=== PATIENT | female | born 1985 | race Caucasian/White ===

== ENCOUNTER → 2019-08-07 16:13 | Outpatient (BNVA) | payer SELFPAY | PROVIDERS: Visit Provider Registered Nurse | DX: R00.2 Palpitations (principal); R07.89 Other chest pain; R07.9 Chest pain, unspecified | CPT/HCPCS: 80053; 80061; 84443; 85025 ==

== ENCOUNTER 2021-01-31 22:12 | Emergency (ER) | payer SELFPAY ==
[2021-01-31 22:21] VITALS: PULSE 74; RESP 20; TEMP 36.7; O2SAT 98; BMI 24.9
--- NOTE | 2021-01-31 22:28 | W.ED.WOUNDLC ---
HPI - Wound/Laceration General: Chief Complaint: Wound/Laceration Stated Complaint: Wants Tetanus Shot from wound not healing Time Seen by Provider: 01/31/21 22:28 History of Present Illness: HPI narrative: 36-year-old female comes in today with a puncture wound to the left wrist. Patient reports last week she noticed that it was getting red and swollen and was able to remove a foreign body from the wound. Patient cannot remember when her last tetanus shot was although she did believe it was within the last 3 years. Patient came in though because of her malaise and fatigue and some muscle cramps and headache with it. Patient appears well. Patient appears no acute distress. Review of Systems General: Reports: 10 or more systems reviewed and unremarkable except in HPI and below Skin/Breast: Reports: other (Puncture wound wrist) [facility] ED PFSH: Medical History Anxiety disorder Chronic urticaria Family History Other CHF (congestive heart failure) Diabetes Hypertension Stroke Social History Smoking and tobacco status: never smoked Second hand smoke exposure: No Physical Exam Const: COMMON NORMALS: no acute distress and patient oriented x3 GENERAL APPEARANCE: cooperative HENMT: COMMON NORMALS: normocephalic, TM's normal bilaterally and Normal external nose present HEAD & SCALP: normal to inspection and normocephalic NOSE: Normal external nose present TYMPANIC MEMBRANE: TM's normal bilaterally MOUTH: Normal oral and palatal mucosa present THROAT: posterior oropharynx normal Eye: GENERAL EYE: appearance normal, both eyes and all related structures Neck/C-Spine: COMMON NORMALS: full ROM Lymph: LYMPHATIC: no lymphadenopathy noted Chest: COMMONS NORMALS: normal inspection of the chest Resp: COMMON NORMALS: normal respiratory effort EFFORT & INSPECTION: Yes able to speak in complete sentences Cardio: COMMON NORMALS: regular rate and regular rhythm RATE: regular rate RHYTHM: regular rhythm GI: COMMON NORMALS: non-tender : COMMON NORMALS: Yes no CVA tenderness BLADDER/KIDNEY EXAM: Yes no CVA tenderness Back/Pelvis: COMMON NORMALS: no CVA tenderness and thoracic and lumbar spine normal to inspection Extremity: COMMON NORMALS: normal to inspection Neuro: COMMON NORMALS: patient oriented x3 and moves all extremities Psych: COMMON NORMALS: mental status grossly normal and cooperative Skin: COMMON NORMALS: no rashes or lesions noted NARRATIVE SKIN EXAM: Healing puncture wound to the left wrist GENERAL SKIN EXAM: no rashes or lesions noted Course Vital Signs: Vital signs: Vital Signs Temperature 98.1 F 01/31/21 22:21 Pulse Rate 74 01/31/21 22:21 Respiratory Rate 20 H 01/31/21 22:21 Pulse Oximetry 98 01/31/21 22:21 MDM - Wound/Laceration MDM Narrative: Medical decision making narrative: Patient comes in for a wound to the left wrist. On exam we have a healing wound noted to the left wrist. Lungs were clear to auscultation. Respirations were even. Skin was warm and dry and color was pink. Abdomen was soft. No signs of serious illness or injury was noted. Differential diagnosis includes puncture wound to the wrist, need for prophylaxis tetanus, worried well, anxiety. I recommended patient follow-up with primary care regarding her concerns for other ailments such as vitamin deficiency, viral syndromes or heavy metal poisoning. I do not think patient has any of these abnormalities but it may be necessary for them to do further labs. I tried to reassure patient that she looked well and that there was no concerns for serious illness at this time. Discharge Plan Discharge Patient Disposition: Home Clinical Impression: Puncture wound Fatigue Qualifiers: Fatigue type: unspecified Qualified Code(s): R53.83 - Other fatigue Condition: Stable Prescriptions: No Action metoprolol tartrate 25 mg tablet See Rx Instructions PO BID RF: 0 vitamin B complex [B Complex-Vitamin B12] Tablet 1 tab PO DAILY RF: 0 ascorbic acid (vitamin C) 1,000 mg tablet 1 g PO BID RF: 0 ferrous sulfate 325 mg (65 mg iron) tablet,delayed release (DR/EC) 325 mg PO DAILY RF: 0 doxycycline hyclate 100 mg tablet 100 mg PO BID 14 Days Qty: 28 RF: 0 Discharge Orders: Discharge ED (Routine); Ordered 01/31/21 Ordered By: Kenneth Balderrama Referrals: Carol Toussaint FNP [Primary Care Provider] - Discharge Diet: Usual diet Discharge Activity: Increase activity as tolerated Patient Instructions: Puncture Wound (ED), Opioid Safety Activity Restrictions/Additional Instructions: Your symptoms at this time are very nonspecific. You might have anything from a vitamin deficiency, viral syndrome, or even heavy metal poisoning. I would recommend you follow-up with primary care to have some basic labs test done such as a CBC and CMP. You may also want to have your thyroid checked along with evaluation for vitamin deficiency. A lead level may also be necessary. Follow-up with primary care to have this evaluation as they will be able to get the test results and continue with the treatment plan which in the ER we would be limited as we would not be able to get most of these test results back quickly. Coding Level of Care Code ED Bone Drier Operator for Matti Capone
[2021-01-31] MEDS: tetanus-dipt-pertussis 0.5 mL SDV IM (22:51)
== END 2021-01-31 22:54 | disposition home or self-care (01) ==
PROVIDERS: Emergency Provider Nurse Practitioner Family; PCP Registered Nurse
DX: S61.532A Puncture wound without foreign body of left wrist, initial encounter (principal); R53.83 Other fatigue; X58.XXXA Exposure to other specified factors, initial encounter
CPT/HCPCS: 90471; 90715; 99282

== ENCOUNTER → 2021-06-07 11:27 | Outpatient (BNVA) | payer SELFPAY | PROVIDERS: PCP Registered Nurse; Visit Provider Nurse Practitioner Family | DX: R53.83 Other fatigue (principal); E55.9 Vitamin D deficiency, unspecified; H10.9 Unspecified conjunctivitis; Z79.899 Other long term (current) drug therapy; Z13.6 Encounter for screening for cardiovascular disorders | CPT/HCPCS: 80053; 80061; 81003; 82306; 83036; 84439; 84443; 85025; 85651; 86140; 87086 ==

== ENCOUNTER → 2021-06-16 13:39 | Outpatient (BNVA) | payer SELFPAY | PROVIDERS: PCP Registered Nurse; Visit Provider Nurse Practitioner Family | DX: R31.9 Hematuria, unspecified (principal); D22.9 Melanocytic nevi, unspecified | CPT/HCPCS: 81003; 87086 ==

== ENCOUNTER → 2021-06-17 16:19 | Outpatient (BNVA) | payer SELFPAY | PROVIDERS: PCP Registered Nurse; Visit Provider Nurse Practitioner Family | DX: R31.9 Hematuria, unspecified (principal) | CPT/HCPCS: 88112 ==

== ENCOUNTER 2021-09-27 12:45 | Emergency (ER) | payer SELFPAY ==
[2021-09-27 13:04] VITALS: BP 164/73; PULSE 96; RESP 16; TEMP 37.2; O2SAT 98; BMI 19.6
--- NOTE | 2021-09-27 13:29 | ED_ITS ---
HPI - General Adult General: Chief complaint: General Medical Stated complaint: Animal Bite Time Seen by Provider: 09/27/21 13:04 History of Present Illness: Patient is a 36-year-old female comes to the ED with possible rabies exposure. Patient [place] property with a have a lot of door cats and dogs. Mother says her cats and dogs are not vaccinated for rabies. Several days ago patient had a bobcat that was acting on in their chicken coop. It was not being aggressive but showing some very odd behavior. She was able to capture bobcat and take to other end of property to get away from the house. She states the next day she found that bobcat in her yard and the cats and dogs had been playing with it. She talked with a vet about bobcat symptoms and he thought it could potentially have had rabies. Patient says that her cats and dogs that were playing with the bobcat were licking all over her face and biting on leg legs for the past couple days. her pets so far have been acting normal. She contacted [facility] and told them about case and they said she is at small risk for secondary exposure to rabies and recommended starting rabies vaccination series. Mother denies getting any bites from bobcat that could potentially have had rabies. Denies any other symptoms. She is concerned about her 3 daughters being exposed to it as well since they have been playing with their pet dogs and cats. Associated symptoms: Deny chest pain, dyspnea, headache(s), nausea, rash, palpitations or vomiting Review of Systems Const: Denies: fever(s), chills or fatigue Eyes: Denies: change in vision or eye discomfort ENMT: Denies: throat pain, odynophagia, nasal discharge or nasal congestion Card: Denies: chest pain, palpitations, edema, swelling of feet/ankles, dyspnea on exertion or orthopnea Resp: Denies: dyspnea, productive cough or non-productive cough GI: Denies: abdominal pain, nausea, vomiting, diarrhea, constipation or hematochezia : Denies: flank pain, dysuria or hematuria Musc: Denies: neck pain, back pain or extremity swelling Skin/Breast: Denies: rash or new lesions Neuro: Denies: headache(s), numbness in extremities or weakness in extremities PFS ED PFSH: Medical History Anxiety disorder Atypical mole Chronic urticaria Conjunctivitis Fatigue Hypertension screen Medication management Vitamin D deficiency Family History Other CHF (congestive heart failure) Diabetes Hypertension Stroke Social History Smoking and tobacco status: never smoked Second hand smoke exposure: No Physical Exam Const: COMMON NORMALS: no acute distress, patient oriented x3, healthy appearing and alert GENERAL APPEARANCE: cooperative and comfortable HENMT: COMMON NORMALS: normocephalic HEAD & SCALP: normocephalic MOUTH: Normal oral and palatal mucosa present THROAT: posterior oropharynx normal and uvula midline Neck/C-Spine: COMMON NORMALS: supple GENERAL: Yes normal visual inspection Resp: COMMON NORMALS: normal respiratory effort, No retractions, No use of accessory muscles and clear to auscultation bilaterally AUSCULTATION: clear to auscultation bilaterally Cardio: COMMON NORMALS: regular rate, regular rhythm, S1 normal heart sound present, S2 normal heart sound present, No gallops present (Cardio), No clicks present (Cardio), No murmurs present (Cardio) and Peripheral pulses 2+ throughout RATE: regular rate RHYTHM: regular rhythm HEART SOUNDS: S1 normal heart sound present and S2 normal heart sound present PERIPHERAL PULSES: Peripheral pulses 2+ throughout GI: COMMON NORMALS: Normal to inspection, nondistended, normoactive bowel sounds present, Soft to palpation, non-tender and no masses PALPATION: Yes Soft to palpation : COMMON NORMALS: Yes no CVA tenderness BLADDER/KIDNEY EXAM: Yes no CVA tenderness Back/Pelvis: COMMON NORMALS: no CVA tenderness Extremity: COMMON NORMALS: normal to inspection Neuro: COMMON NORMALS: patient oriented x3 and moves all extremities SENSORIUM/ORIENTATION: Yes alert Skin: GENERAL SKIN EXAM: dry skin Course Vital Signs: Vital signs: Vital Signs Temperature 99 F 09/27/21 13:04 Pulse Rate 96 09/27/21 13:04 Respiratory Rate 16 09/27/21 13:04 Blood Pressure 164/73 09/27/21 13:04 Pulse Oximetry 98 09/27/21 13:04 [facility] - General Adult Medical Decision Making Patient here for exposure to possible rabies. See HPI for more details. Patient denies any symptoms. Vitals are stable and patient appears healthy and exam is benign. Patient started on rabies postexposure prophylaxis protocol. They are instructed on when to come back for the rest of rabies postexposure vaccine series. Discharge Plan Discharge Patient Disposition: Home Clinical Impression: Need for post exposure prophylaxis for rabies Condition: Stable Prescriptions: No Action vitamin B complex [B Complex-Vitamin B12] Tablet 1 tab PO DAILY 0RF ascorbic acid (vitamin C) 1,000 mg tablet 1 g PO BID 0RF ferrous sulfate 325 mg (65 mg iron) tablet,delayed release (DR/EC) 325 mg PO DAILY 0RF Discharge Orders: Discharge ED (Routine); Ordered 09/27/21 Ordered By: Emil Arias Referrals: Carol Toussaint FNP [Primary Care Provider] - Discharge Diet: Regular Discharge Activity: Resume usual activity Activity Restrictions/Additional Instructions: Follow-up with medical provider as directed. return to the ED for rabies vaccination dose on day 3 (September 30), 7 (October 04) and 14 (October 11). take medications as prescribed. Return to the ER or your medical provider if condition worsens. Please read and understand discharge instructions. If any questions, please ask. Coding Level of Care Code ED Elect Equip Maint Eng for Matti Fwd Exam Comprehensive
[2021-09-27] MEDS: rabies vaccine 2.5 unit SDV IM (14:28)
== END 2021-09-27 14:34 | disposition home or self-care (01) ==
PROVIDERS: Emergency Provider Physician Assistant; PCP Registered Nurse
DX: Z20.3 Contact with and (suspected) exposure to rabies (principal); Z29.14 Encounter for prophylactic rabies immune globulin; Z23 Encounter for immunization
CPT/HCPCS: 90471; 90675; 99283

== ENCOUNTER 2021-09-30 12:20 | Emergency (ER) | payer SELFPAY ==
[2021-09-30 12:32] VITALS: BP 125/80; PULSE 84; RESP 16; TEMP 36.9; O2SAT 100; BMI 19.6
--- NOTE | 2021-09-30 13:18 | ED_ITS ---
HPI - General Adult General: Chief complaint: General Medical Stated complaint: rabies shots Time Seen by Provider: 09/30/21 12:28 Source: patient Mode of arrival: ambulatory Limitations: no limitations History of Present Illness: Patient is an 36-year-old female here along with her 3 children for day 3 of the rabies vaccination as part of their rabies postexposure prophylaxis. Mother states 3 days ago they all were exposed to one of their farm animals (dogs/cats) that had been attacking and eating on a bobcat that potentially had rabies. Patient has no physical symptoms or complaints at this time. All dogs/cats at the house have been acting normal thus far. Review of Systems General: Reports: 10 or more systems reviewed and unremarkable except in HPI and below PFSH ED PFSH: Medical History Anxiety disorder Atypical mole Chronic urticaria Conjunctivitis Fatigue Hypertension screen Medication management Vitamin D deficiency Family History Other CHF (congestive heart failure) Diabetes Hypertension Stroke Social History Smoking and tobacco status: never smoked Second hand smoke exposure: No Female Reproductive History: Date of last menstrual period: 09/30/21 Physical Exam Const: COMMON NORMALS: no acute distress, average body habitus, patient oriented x3, no limitations, healthy appearing, alert and well nourished Extremity: GENERAL: Yes normal exam except as noted Neuro: GLORIA COMA SCALE: document GCS findings Gloria coma scale eye opening: Spontaneous Gloria coma scale verbal response: Orientated Gloria coma scale motor response: Obey commands Gloria coma scale total score: 15 COMMON NORMALS: patient oriented x3, moves all extremities, no focal motor deficits, no sensory deficits noted and gait normal SENSORIUM/ORIENTATION: Yes alert Skin: COMMON NORMALS: no rashes or lesions noted GENERAL SKIN EXAM: no rashes or lesions noted Course Vital Signs: Vital signs: Vital Signs Temperature 98.4 F 09/30/21 12:32 Pulse Rate 84 09/30/21 12:32 Respiratory Rate 16 09/30/21 12:32 Blood Pressure 125/80 09/30/21 12:32 Pulse Oximetry 100 09/30/21 12:32 [facility] - General Adult Medical Decision Making Rabies vaccination was administered. Recommend patient continue on current schedule to receive rabies vaccinations on days 7 and 14. Discharge Plan Discharge Patient Disposition: Home Clinical Impression: Encounter for repeat administration of rabies vaccination Condition: Stable Prescriptions: No Action vitamin B complex [B Complex-Vitamin B12] Tablet 1 tab PO DAILY 0RF ascorbic acid (vitamin C) 1,000 mg tablet 1 g PO BID 0RF ferrous sulfate 325 mg (65 mg iron) tablet,delayed release (DR/EC) 325 mg PO DAILY 0RF sulfamethoxazole-trimethoprim [Bactrim DS] 800-160 mg tablet 1 tab PO Q12H 7 Days Qty: 14 0RF Discharge Orders: Discharge ED (Routine); Ordered 09/30/21 Ordered By: Karis Valencia Referrals: MAURICIO Olivarez, WELDING MACHINE OPERATOR ELECTRON BEAM [Primary Care Provider] - Coding Level of Care Code ED Cardiac Cath Lab Technologist for Matti Capone
[2021-09-30] MEDS: rabies vaccine 2.5 unit SDV IM (13:23)
== END 2021-09-30 13:49 | disposition home or self-care (01) ==
PROVIDERS: Emergency Provider Physician Assistant
DX: Z29.14 Encounter for prophylactic rabies immune globulin (principal); Z20.3 Contact with and (suspected) exposure to rabies; Z23 Encounter for immunization
CPT/HCPCS: 90471; 90675; 99283

== ENCOUNTER → 2023-01-24 13:40 | Outpatient (BNVA) | payer MEDICAID, SELFPAY | PROVIDERS: Visit Provider Nurse Practitioner Women's Health | DX: N64.4 Mastodynia (principal); R53.83 Other fatigue | CPT/HCPCS: 84146; 84702 ==

== ENCOUNTER 2023-02-01 11:09 | Outpatient (CLI) | payer MEDICAID, SELFPAY ==
--- NOTE | 2023-02-01 11:00 | MM_ITS ---
WS: [id number] DIAGNOSTIC BILATERAL DIGITAL BREAST TOMOSYNTHESIS MAMMOGRAPHY WITH CAD BILATERAL BREAST ULTRASOUND, COMPLETE HISTORY: N64.4 - Mastodynia COMPARISON: None available. TECHNIQUE: Bilateral craniocaudad, mediolateral oblique, and mediolateral views are submitted with to mosynthesis and SM. Spot compression LEFT CC. Computer aided detection utilized. Breast composition: The breasts are extremely dense, which lowers the sensitivity of mammography. No masses or distortion identified. No nipple retraction. Very dense fibroglandular tissue. No calcifica tion. Bilateral breast ultrasound, complete. Bilateral breast ultrasound is performed. No distortion or solid mass identified. Simple cyst RIGHT b reast at 4:00 2 cm from the nipple measures 6 x 6 x 3 mm. Additional slightly complex cyst at 8:00 LE FT breast near the areola. This is palpable. This cyst complex cyst measures 4 x 4 x 3 mm. There are no solid masses. IMPRESSION: MM/[place] [id number] BI-RADS: 2-Benign FOLLOW UP: 1 Year Follow-up
--- NOTE | 2023-02-01 11:14 | US_ITS ---
WS: [id number] DIAGNOSTIC BILATERAL DIGITAL BREAST TOMOSYNTHESIS MAMMOGRAPHY WITH CAD BILATERAL BREAST ULTRASOUND, COMPLETE HISTORY: N64.4 - Mastodynia COMPARISON: None available. TECHNIQUE: Bilateral craniocaudad, mediolateral oblique, and mediolateral views are submitted with to mosynthesis and SM. Spot compression LEFT CC. Computer aided detection utilized. Breast composition: The breasts are extremely dense, which lowers the sensitivity of mammography. No masses or distortion identified. No nipple retraction. Very dense fibroglandular tissue. No calcifica tion. Bilateral breast ultrasound, complete. Bilateral breast ultrasound is performed. No distortion or solid mass identified. Simple cyst RIGHT b reast at 4:00 2 cm from the nipple measures 6 x 6 x 3 mm. Additional slightly complex cyst at 8:00 LE FT breast near the areola. This is palpable. This cyst complex cyst measures 4 x 4 x 3 mm. There are no solid masses. IMPRESSION: US/[place] breast [place] complete [id number] BI-RADS: 2-Benign FOLLOW UP: 1 Year Follow-up
== END 2023-02-01 11:10 | disposition home or self-care (01) ==
LOC: RAD 11:09
PROVIDERS: Visit Provider Nurse Practitioner Women's Health
DX: N64.4 Mastodynia (principal)
CPT/HCPCS: 76641; 77062; G0279

== ENCOUNTER → 2023-07-28 08:29 | Outpatient (BNVA) | payer SELFPAY | PROVIDERS: PCP Nurse Practitioner Family; Visit Provider Nurse Practitioner Women's Health | DX: Z34.90 Encounter for supervision of normal pregnancy, unspecified, unspecified trimester (principal); Z30.9 Encounter for contraceptive management, unspecified | CPT/HCPCS: 81025; 84702; 86850; 86900 ==

== ENCOUNTER 2023-08-01 16:12 | Outpatient (CLI) | payer SELFPAY | END 2023-08-01 16:13 | disposition home or self-care (01) | LOC: LAB 16:14 | PROVIDERS: PCP Nurse Practitioner Family; Visit Provider Obstetrics & Gynecology | DX: O20.0 Threatened abortion (principal) | CPT/HCPCS: 36415; 84702 ==

== ENCOUNTER 2023-08-03 17:29 | Outpatient (CLI) | payer MEDICAID, SELFPAY | END 2023-08-03 17:30 | disposition home or self-care (01) | LOC: LAB 17:31 | PROVIDERS: PCP Nurse Practitioner Family; Visit Provider Obstetrics & Gynecology | DX: O20.0 Threatened abortion (principal) | CPT/HCPCS: 36415; 84702 ==

== ENCOUNTER 2023-08-04 17:21 | Emergency (ER) | payer SELFPAY ==
[2023-08-04 17:39] VITALS: BP 120/70; PULSE 71; RESP 17; TEMP 37; O2SAT 100; BMI 20.9
--- NOTE | 2023-08-04 17:42 | ED_ITS ---
HPI - 2 General: Chief complaint: Vaginal Bleeding Stated complaint: MISCARRIAGE Time Seen by Provider: 08/04/23 17:35 Source: patient Mode of arrival: EMS History of Present Illness: 38-year-old G4, P3 SAB 1 female presents with a reported twin gestation. She had previously had mono Di twins about 6 years ago. Recent serial beta-hCG showed on 426 beta-hCG of 152K on 430 beta-hCG of 123 K, on 5 05/04/2019 4K. I do not see documentation in the chart confirming intrauterine . Patient has reported intermittent heavy bleeding and near syncopal episode today. Not active bleeding at this time. MD Complaint: vaginal bleeding Onset (ago): day(s) Relieving factors: none Exacerbating factors: none Vaginal bleeding: clots care: followed by OB Associated symptoms: Deny abdominal pain, dyspareunia, dysuria, headache(s), malaise, nausea, rash, seizures, short of breath, syncope, vaginal bleeding, vaginal discharge, visual changes, vomiting or weakness Review of Systems 2 Const: Denies: malaise Card: Denies: syncope GI: Denies: abdominal pain, nausea or vomiting : Denies: dysuria, urinary frequency, urinary urgency, vaginal discharge or dyspareunia Neuro: Denies: headache(s) PFSH ED 2 PFSH: Medical History Parenchymal disease of kidney Atypical mole Hypertension screen Medication management Fatigue Conjunctivitis Vitamin D deficiency Anxiety disorder Chronic urticaria Family History Other Congestive heart failure (CHF) Diabetes Hypertension Stroke Social History Smoking and tobacco/nicotine status: never used tobacco/nicotine Second hand smoke exposure: No Substance/Drug Use: never Physical Exam 2 Const: GENERAL APPEARANCE: cooperative and comfortable O RIENTATION/CONSCIOUSNESS: Yes awake, Yes oriented to person, Yes oriented to place and Yes oriented to time HENMT: COMMON NORMALS: normocephalic, atraumatic and hearing grossly normal bilaterally HEAD & SCALP: normocephalic and atraumatic Resp: COMMON NORMALS: normal respiratory effort, No retractions, No use of accessory muscles and clear to auscultation bilaterally AUSCULTATION: clear to auscultation bilaterally Cardio: COMMON NORMALS: regular rate, regular rhythm and No murmurs present (Cardio) RATE: regular rate RHYTHM: regular rhythm GI: COMMON NORMALS: Soft to palpation and No hepatosplenomegaly present A USCULTATION: Yes normoactive bowel sounds PALPATION: Yes Soft to palpation, No Tenderness to palpation present (GI), No Guarding due to palpation present (GI) and Yes No hepatosplenomegaly present : SPECULUM EXAM - VAGINA: No vaginal bleeding OB/EXTERNAL & SPECULUM: No vaginal bleeding OTHER: Patient placed in dorsolithotomy position with nurse present. Large amount of blood in the vaginal vault this was removed with ring forceps and jorge swabs. Cervix visualized there is products of conception at the os which was removed to with a ring forceps. An intact bag sunshine with poles removed. This was submitted for pathology. Once the products of conception was removed from the os bleeding decreased. GC chlamydia and wet mount were also done. Extremity: COMMON NORMALS: normal to inspection, capillary refill normal, no clubbing, cyanosis or edema, no calf tenderness and no pedal edema Neuro: SENSORIUM/ORIENTATION: Yes oriented to person, Yes oriented to place and Yes oriented to time Skin: COMMON NORMALS: no rashes or lesions noted GENERAL SKIN EXAM: no rashes or lesions noted Course 2 Vital Signs: Vital signs: Vital Signs Temperature 98.6 F 08/04/23 17:39 Pulse Rate 77 08/04/23 18:04 Respiratory Rate 17 08/04/23 17:39 Blood Pressure 127/78 08/04/23 18:04 Pulse Oximetry 100 08/04/23 18:04 Oxygen Delivery Me thod Room Air 08/04/23 18:04 MDM - OB/Uterine Contractions Medical Decision Making Patient presents with increasing cramping and pain. On pelvic exam products of conception found in the os these were removed with a ring forceps without difficulty. No bleeding after this was removed. POC that was removed and submitted for pathology. Cultures done as well. Discharge patient home with hydrocodone promethazine to use as needed. She had related that there was an issue with her kidneys her kidney function today is normal. Encouraged her to follow-up with the evaluation as previously advised regarding that but reassuringly her kidney function today is good. Her hemoglobin is 11 8 which reflects a slight decrease but is still stable. Suspect her syncopal episode was due to the pain and cramping. RhoGAM was given patient be discharged home advised to follow-up with her OB next week. Medical Records I reviewed the patient's medical records. Lab Data I reviewed the patient's lab results. 08/04/23 16:18 08/04/23 16:18 Laboratory Results WBC 9.61 10^3/uL (3.29-11.43) 08/04/23 16:18 RBC 3.83 10^6/uL (3.85-5.65) L 08/04/23 16:18 Hgb 11.80 g/dL (11.27-16.99) 08/04/23 16:18 Hct 35.8 % (36-47) L 08/04/23 16:18 MCV 93.5 fl (85-98) 08/04/23 16:18 MCH 30.8 pg (27-33) 08/04/23 16:18 MCHC 33.0 g/dL (30-55) 08/04/23 16:18 RDW 12.2 % (12.1-15.1) 08/04/23 16:18 Plt Count 227 10^3/cmm (157-399) 08/04/23 16:18 MPV 10.1 fL (7.4-10.4) 08/04/23 16:18 Neut % (Auto) 67.0 % 08/04/23 16:18 Lymph % (Auto) 22.7 % 08/04/23 16:18 [place] % (Auto) 6.5 % 08/04/23 16:18 Eos % (Auto) 2.8 % 08/04/23 16:18 Baso % (Auto) 0.8 % 08/04/23 16:18 Neut # (Auto) 6.44 10^3/uL (1.8-7.7) 08/04/23 16:18 Lymph # (Auto) 2.2 10^3/uL (0.8-4.8) 08/04/23 16:18 [place] # (Auto) 0.6 10^3/uL (0.2-0.9) 08/04/23 16:18 Eos # (Auto) 0.3 10^3/uL (0.0-0.8) 08/04/23 16:18 Baso # (Auto) 0.1 10^3/uL (0.0-0.1) 08/04/23 16:18 Nucleated RBC % (auto) 0 % 08/04/23 16:18 Nucleated RBCs # 0.0 /100WBC 08/04/23 16:18 Sodium 139 mmol/L (136-145) 08/04/23 16:18 Potassium 3.9 mmol/L (3.5-5.1) 08/04/23 16:18 Chloride 106 mmol/L (98-107) 08/04/23 16:18 Carbon Dioxide 24 mmol/L (22-29) 08/04/23 16:18 Anion Gap 12.9 (5-19) 08/04/23 16:18 BUN 14 mg/dL (6-20) 08/04/23 16:18 Creatinine 0.7 mg/dL (0.5-0.9) 08/04/23 16:18 GFR Calculation 94.2 mL/min (90-130) 08/04/23 16:18 Glucose 99 mg/dL (65-115) 08/04/23 16:18 Calculated Osmolality 289 mOsm/kg (285-295) 08/04/23 16:18 Calcium 8.6 mg/dL (8.5-10.5) 08/04/23 16:18 Total Bilirubin 0.2 mg/dL (0.15-1.2) 08/04/23 16:18 AST 13 U/L (0-32) 08/04/23 16:18 ALT 11 U/L (0-33) 08/04/23 16:18 Alkaline Phosphatase 46 U/L (35-105) 08/04/23 16:18 Total Protein 6.8 g/dL (6.6-8.7) 08/04/23 16:18 Albumin 4.0 g/dL (3.5-5.2) 08/04/23 16:18 Globulin 2.8 g/dL (1.3-4.6) 08/04/23 16:18 Ser , Semi-Qnt 7248.00 mIU/mL 08/04/23 16:18 No radiology studies performed this visit Discharge Plan Discharge Patient Disposition: Home Clinical Impression: Complete miscarriage Condition: Stable Prescriptions: New hydrocodone-acetaminophen 5-325 mg tablet 1 tab PO Q6H PRN (Reason: pain) Qty: 15 0RF promethazine 25 mg tablet 25 mg PO Q6H PRN (Reason: nausea and vomiting) Qty: 20 0RF No Action Gummies 400 mcg-35 mg- 25 mg-5 mg tablet,chewable PO Discharge Orders: Discharge ED (Routine); Ordered 08/04/23 Ordered By: Dayron Adkins Referrals: MAURICIO Olivarez, COOK HELPER FRUIT [Primary Care Provider] - Discharge Diet: Usual diet Discharge Activity: Increase activity as tolerated Patient Instructions: Miscarriage (ED), Opioid Safety, Pain Management Activity Restrictions/Additional Instructions: Thank you for choosing [facility] for your healthcare needs today. Please realize this is an emergency room and that we are providing you with a medical screening exam and this may not be complete and all inclusive of all the testing and or work up that you may need to determine your ailment or severity of your illness. It is very important that you follow up as instructed or that you return to the Emergency Department should you have concerns or if your condition changes or worsens in any way. Follow-up with your database developer. Contact their office and inform them that your miscarriage completed. They should follow-up with you next week sometime. Coding Level of Care Code ED Telecommunications Support for Matti Capone
[2023-08-04 17:44] LABS: Basophils # 0.1 10^3/uL (0.0-0.1); Basophils % 0.8 %; Eosinophils # 0.3 10^3/uL (0.0-0.8); Eosinophils % 2.8 %; Hematocrit 35.8 % (36-47); Lymphocytes # 2.2 10^3/uL (0.8-4.8); Lymphocytes % 22.7 %; Mean Corpuscular Hemoglobin 30.8 pg (27-33); Mean Corpuscular Volume 93.5 fl (85-98); Mean Platelet Volume 10.1 fL (7.4-10.4); Monocytes # 0.6 10^3/uL (0.2-0.9); Monocytes % 6.5 %; Neutrophils # 6.44 10^3/uL (1.8-7.7); Nucleated Red Blood Cells % 0 %; Platelet Count 227 10^3/cmm (157-399); Red Blood Count 3.83 10^6/uL (3.85-5.65); Red Cell Distribution Width 12.2 % (12.1-15.1); White Blood Count 9.61 10^3/uL (3.29-11.43)
[2023-08-04 18:04] VITALS: BP 127/78; PULSE 77; O2SAT 100
[2023-08-04 18:12] LABS: Alanine Aminotransferase 11 U/L (0-33); Alkaline Phosphatase 46 U/L (35-105); Anion Gap 12.9 (5-19); Aspartate Amino Transferase 13 U/L (0-32); Blood Urea Nitrogen 14 mg/dL (6-20); Calcium 8.6 mg/dL (8.5-10.5); Carbon Dioxide 24 mmol/L (22-29); Chloride 106 mmol/L (98-107); Creatinine Clr Calc Pharmacy 125.0416; Globulin 2.8 g/dL (1.3-4.6); Glomerular Filtration Rate 94.2 mL/min (90-130); Glucose 99 mg/dL (65-115); Osmolality Calculated 289 mOsm/kg (285-295); Potassium 3.9 mmol/L (3.5-5.1); Sodium 139 mmol/L (136-145); Total Bilirubin 0.2 mg/dL (0.15-1.2); Total Protein 6.8 g/dL (6.6-8.7)
[2023-08-04 19:00] VITALS: BP 121/59; PULSE 76; RESP 16; O2SAT 100
[2023-08-04 19:44] VITALS: BP 91/56; PULSE 86; RESP 16; TEMP 37; O2SAT 99
[2023-08-07 23:20] LABS: Chlamydia Trachomatis RNA TMA NOT DETECTED (NOT DETECTED); Neisseria Gonorrhoeae RNA, TMA NOT DETECTED (NOT DETECTED)
== END 2023-08-04 19:59 | disposition home or self-care (01) ==
PROVIDERS: Emergency Provider Family Medicine; PCP Nurse Practitioner Family
DX: O03.9 Complete or unspecified spontaneous abortion without complication (principal); Z29.13 Encounter for prophylactic Rho(D) immune globulin
CPT/HCPCS: 36415; 80053; 84702; 85025; 86850; 86900; 87210; 87491; 87591; 88305; 90384; 99283